=== PATIENT | male | born 1990 | race African-American/Black ===

== ENCOUNTER 2019-05-09 10:00 | Emergency (ER) | payer MEDICAID, SELFPAY ==
[2019-05-09 10:54] VITALS: BP 156/88; PULSE 65; RESP 16; TEMP 36.8; O2SAT 100
--- NOTE | 2019-05-09 11:36 | ED.GENADULT ---
HPI - General Adult General Chief complaint: Nausea/Vomiting/Diarrhea Stated complaint: Nausea Source: patient Mode of arrival: ambulatory Limitations: no limitations History of Present Illness HPI narrative: Patient is a 28-year-old male who presents with nausea, generalized body aches, weakness, cough and chills. Patient reports sudden onset of symptoms this a.m. He denies abdominal pain or vomiting and diarrhea. He denies taking [id number] medications for symptom relief prior to arrival. Patient still reports mild nausea. MD complaint: Nausea, weakness, Related Data Allergies Allergy/AdvReac Type Severity Reaction Status Date / Time No Known Allergies Allergy Unverified 11/29/16 17:37 Review of Systems Review of Systems: Narrative: CONSTITUTIONAL: Denies fever, chills, or sweats. EYES: Denies visual changes, redness, or discharge. ENT: Denies rhinorrhea, congestion, sore throat, or otalgia. CARDIOVASCULAR: Denies chest pain, palpitations, or edema. RESPIRATORY: Reports cough, denies dyspnea. GASTROINTESTINAL: Denies abdominal pain, vomiting, or diarrhea. Reports nausea. GENITOURINARY: Denies dysuria or hematuria. SKIN: Denies rash or itching. MUSCULOSKELETAL: Denies back pain, joint pain, or myalgia. NEUROLOGIC: Denies headache, numbness, dizziness, or weakness. PSYCHIATRIC: Denies anxiety or depression. [facility] Past Medical History Medical History (Updated 05/09/19 @ 11:42 by MYAH Mcdaniels) Renal disease Family History Family History (Updated 05/09/19 @ 11:39 by MYAH Mcdaniels) Grandparent Diabetes mellitus Social History Social History (Updated 05/09/19 @ 11:40 by MYAH Mcdaniels) Smoking status: Current every day smoker Tobacco type: cigarettes Alcohol intake: current Alcohol use details: Socially Substance use: never Living arrangements: with family Occupation/Education: occupation Gender identity (if verbalized by the patient): Male Exam Narrative: Exam Narrative: GENERAL: Well-appearing, well-nourished, and in no acute distress. HEAD: Normocephalic, atraumatic. EYES: EOMI. No redness or drainage. Conjunctiva are normal. ENT: Mucous membranes pink and moist. Nares clear. No rhinorrhea. TMs normal bilaterally. Throat normal. Uvula midline. NECK: AROM. Supple. No lymphadenopathy. CHEST: No respiratory distress. Clear to auscultation. HEART: Regular rate and rhythm. No murmur appreciated. Normal peripheral pulses. GI: Soft, nontender without rebound, or guarding. No distention. Bowel sounds normal in all quadrants. SKIN: Warm, dry, no rash. NEURO: No focal deficits. Alert and oriented x3. Gait steady. PSYCH: Normal affect. No signs of depression or anxiety. Course Vital Signs Vital signs: Vital Signs Temperature 36.8 C 05/09/19 10:54 Pulse Rate 65 05/09/19 10:54 Respiratory Rate 16 05/09/19 10:54 Blood Pressure 156/88 H 05/09/19 10:54 Pulse Oximetry 100 05/09/19 10:54 Temperature 36.8 C 05/09/19 10:54 Pulse Rate 65 05/09/19 10:54 Respiratory Rate 16 05/09/19 10:54 Blood Pressure 156/88 H 05/09/19 10:54 Pulse Oximetry 100 05/09/19 10:54 Reviewed. Patient has been instructed to follow-up with his PCP regarding his blood pressure. Medical Decision Making MDM Narrative Medical decision making narrative: Patient most likely has viral illness. Discussed with patient symptomatic treatment. Patient agrees with plan of care. Patient is stable for discharge to home with outpatient follow-up as needed. Differential Diagnosis Differential Diagnosis: Influenza, viral illness, gastroenteritis Vital Signs Vital Signs: Vital Signs Temperature 36.8 C 05/09/19 10:54 Pulse Rate 65 05/09/19 10:54 Respiratory Rate 16 05/09/19 10:54 Blood Pressure 156/88 H 05/09/19 10:54 Pulse Oximetry 100 05/09/19 10:54 Temperature 36.8 C 05/09/19 10:54 Pulse Rate 65 05/09/19 10:54 Respiratory Rate
== END 2019-05-09 11:48 | disposition home or self-care (01) ==
PROVIDERS: Emergency Provider Nurse Practitioner
DX: R11.0 Nausea (principal); F17.210 Nicotine dependence, cigarettes, uncomplicated
CPT/HCPCS: 99213; G0463

== ENCOUNTER 2019-06-27 09:42 | Emergency (ER) | payer MEDICAID, SELFPAY ==
[2019-06-27 09:58] VITALS: BP 157/80; PULSE 79; RESP 16; TEMP 37.2; O2SAT 98
--- NOTE | 2019-06-27 10:47 | ED.GENADULT ---
HPI - General Adult General Chief complaint: Unspecified Stated complaint: right side pain Time Seen by Provider: 06/27/19 10:31 Source: patient and RN notes reviewed Mode of arrival: ambulatory Limitations: no limitations History of Present Illness HPI narrative: Patient presents today with a one-week history of right lower rib pain. Denies any known injury or trauma. Last night, he coughed and felt a pop in this area with increased pain. Denies recent illness of shortness of breath. Pain increases with movement, coughing, or deep breaths. He has tried no interventions at home prior to arrival. MD complaint: Right rib pain Related Data Home Medications Medication Instructions Recorded Confirmed No Home Medications 06/27/19 06/27/19 Allergies Allergy/AdvReac Type Severity Reaction Status Date / Time No Known Allergies Allergy Verified 06/27/19 10:01 Review of Systems Review of Systems: Narrative: CONSTITUTIONAL: Denies body aches, fever, chills, or sweats. EYES: Denies visual changes, redness, or discharge. ENT: Denies rhinorrhea, congestion, sore throat, or otalgia. CARDIOVASCULAR: Denies chest pain, palpitations, or edema. RESPIRATORY: Denies cough or dyspnea. Right rib pain GASTROINTESTINAL: Denies abdominal pain, nausea, vomiting, or diarrhea. GENITOURINARY: Denies dysuria or hematuria. SKIN: Denies rash, itching, or wounds. MUSCULOSKELETAL: Denies back pain, joint pain, or myalgia. NEUROLOGIC: Denies headache, numbness, tingling, or weakness. PSYCH: Denies depression or anxiety. [facility] Past Medical History Medical History (Updated 06/27/19 @ 10:51 by Flower Mullen, MYAH, ) Renal disease Family History Family History (Updated 05/09/19 @ 11:39 by MYAH Mcdaniels) Grandparent Diabetes mellitus Social History Social History (Updated 05/09/19 @ 11:40 by MYAH Mcdaniels) Smoking status: Current every day smoker Tobacco type: cigarettes Alcohol intake: current Substance use: never Gender identity (if verbalized by the patient): Male Comments At time of signature, I have reviewed and agree with nursing past medical, surgical, social and family history unless otherwise noted. Please see nursing chart for further information. There is no relevant family history pertinent to the presenting complaint Exam Narrative: Exam Narrative: GENERAL: Well-appearing, well-nourished, and in no acute distress. HEAD: Normocephalic, atraumatic. EYES: EOMI. No redness or drainage. Conjunctivae normal. ENT: Mucous membranes pink and moist. NECK: Normal AROM. Supple. No lymphadenopathy. CHEST: No respiratory distress. Clear to auscultation. Tenderness to the right anterolateral rib line. No crepitus, edema noted. HEART: Regular rate and rhythm. No murmur appreciated. Normal peripheral pulses. ABDOMEN: Soft, nontender, nondistended, normal active bowel sounds. MUSCULOSKELETAL: No bony tenderness. EXTREMITIES: Normal range of motion. No edema. SKIN: Warm, dry, no rash. Capillary refill normal. Normal skin turgor. NEURO: No focal deficits. Alert and oriented x3. Gait steady. PSYCH: Normal affect. No signs of depression or anxiety. Course Vital Signs Vital signs: Vital Signs Temperature 99.0 F 06/27/19 09:58 Pulse Rate 79 06/27/19 09:58 Respiratory Rate 16 06/27/19 09:58 Blood Pressure 157/80 H 06/27/19 09:58 Pulse Oximetry 98 06/27/19 09:58 Temperature 99.0 F 06/27/19 09:58 Pulse Rate 79 06/27/19 09:58 Respiratory Rate 16 06/27/19 09:58 Blood Pressure 157/80 H 06/27/19 09:58 Pulse Oximetry 98 06/27/19 09:58 Reviewed. Pt has been instructed to follow up with his PCP regarding his elevated blood pressure today. Medical Decision Making Differential Diagnosis Differential Diagnosis: Pleurisy, muscle strain, chest wall pain, rib strain Vital Signs Vital Signs: Vital Signs Temperature 99.0 F 06/27/19 09:58 Pulse Rate 79
== END 2019-06-27 10:54 | disposition home or self-care (01) ==
PROVIDERS: Emergency Provider Nurse Practitioner
DX: S23.41XA Sprain of ribs, initial encounter (principal); X58.XXXA Exposure to other specified factors, initial encounter; F17.210 Nicotine dependence, cigarettes, uncomplicated
CPT/HCPCS: 99212; G0463

== ENCOUNTER 2019-10-08 08:18 | Emergency (ER) | payer OTHER, SELFPAY ==
--- NOTE | ~2019-10-08 | XR_ITS ---
XR knee LT min 4V DATE: 10/08/2019 08:39 INDICATION: Twisting injury of left knee. Medial and lateral pain. TECHNIQUE: Crosstable lateral, AP and bilateral oblique views COMPARISON: None FINDINGS: There is mild to moderate suprapatellar knee joint effusion. No fracture or dislocation, periosteal reaction or bone destruction, radiopaque intra-articular loose body or chondrocalcinosis is evident. The joint spaces are preserved. IMPRESSION: Mild/moderate suprapatellar knee joint effusion Reviewed, dictated and finalized at location A.
[2019-10-08 08:28] VITALS: BP 148/83; PULSE 65; RESP 65; TEMP 36.6; O2SAT 100
--- NOTE | 2019-10-08 08:34 | ED.GENADULT ---
HPI - General Adult General Chief complaint: Extremity Injury, Lower Stated complaint: left knee pain Time Seen by Provider: 10/08/19 08:28 Source: patient and RN notes reviewed Mode of arrival: ambulatory Limitations: no limitations History of Present Illness HPI narrative: 27-year-old -[place] male presents with complains of diffused left knee pain for the past 7 days. Epson salt soaks, icy-hot, and Ibuprofen (last on the night of 10/07/19) with no relief. No known injury. Nathan says he was walking and he knee gave out and he fell to the ground. Denies hitting head or loss of consciousness. No radiation of pain. No numbness or tingling, or bleeding. Swelling. No loss of mobility. Exacerbating factor consist of bearing weight. No fever or chills. Remains active. The patient reports he have not been diagnosed with COVID-19. The patient reports he is not waiting for the results of a COVID-19 lab test. The patient reports he do not have fever, chills, weakness, fatigue, or myalgia. The patient reports he do not have a new or worsening cough or shortness of breath. Denies chest pain. The patient reports he do not have any rhinorrhea, congestion, sore throat, nausea, vomiting, abdominal pain, and diarrhea. Tolerating po intake well. Denies recent traveling. Denies concerns for COVID-19 or exposures been home with limited outdoor exposure except for essential household needs, work, and return home. At this time, patient is not suspected of having COVID-19. Some parts of this dictation were generated by voice recognition software and may contain typographical and/or grammatical inaccuracies. Related Data Allergies Allergy/AdvReac Type Severity Reaction Status Date / Time No Known Allergies Allergy Verified 06/27/19 10:01 Review of Systems Review of Systems: Narrative: CONSTITUTIONAL: Denies fever, chills, sweats. EYES: Denies visual changes, redness, discharge. ENT: Denies rhinorrhea, congestion, sore throat, otalgia. CARDIOVASCULAR: Denies chest pain, palpitations, edema. RESPIRATORY: Denies dyspnea, wheezing, cough. GASTROINTESTINAL: Denies abdominal pain, nausea, vomiting, diarrhea. GENITOURINARY: Denies dysuria, hematuria, abnormal discharge SKIN: Denies rash or itching. MUSCULOSKELETAL: Denies acute back pain or myalgia. Complains of diffused Left knee pain and top of knee swelling. NEUROLOGIC: Denies numbness, or focal weakness. PSYCHIATRIC: Denies anxiety or depression. All other systems reviewed & are unremarkable except as noted in HPI and below. [facility] Past Medical History Medical History (Updated 10/09/19 @ 00:00 by Hannah Diaz) Renal disease Surgical History Surgical History (Updated 10/08/19 @ 08:49 by MYAH Leiva) No significant past surgical history Family History Family History (Updated 10/08/19 @ 08:49 by MYAH Leiva) Grandparent Diabetes mellitus Father Unknown family medical history Mother Hypertension Social History Social History (Updated 10/08/19 @ 08:50 by MYAH Leiva) Smoking packs per day: 0.5 Smoking cigarettes per day: 10.0 Years smoked: 15 Smoking pack-years: 7.50 Smoking status: Current every day smoker Tobacco type: cigarettes Alcohol intake: current Substance use: never Living arrangements: with family Occupation/Education: occupation Gender identity (if verbalized by the patient): Male Sexual Orientation (if Verbalized by the Patient): Straight or Heterosexual Comments At time of signature, agree with nurse past medical, surgical, social, and family history. There is no relevant family history pertinent to the presenting complaint. Exam Narrative: Exam Narrative: GENERAL: This is a well-nourished, well-developed patient, in no apparent distress. Talks in full sentences and ambulates with LT antalgic gait without dyspnea. HEAD: normocephalic, atraumatic. EYES: PERRL. Sclera clear/white. Vi
== END 2019-10-08 09:00 | disposition home or self-care (01) ==
PROVIDERS: Emergency Provider Nurse Practitioner Family
DX: S83.92XA Sprain of unspecified site of left knee, initial encounter (principal); X58.XXXA Exposure to other specified factors, initial encounter; M25.462 Effusion, left knee; F17.210 Nicotine dependence, cigarettes, uncomplicated
CPT/HCPCS: 73564; 99213; G0463

== ENCOUNTER 2020-12-03 13:23 | Emergency (ER) | payer OTHER, SELFPAY ==
[2020-12-03 13:31] VITALS: BP 133/85; PULSE 76; RESP 20; TEMP 36.8; O2SAT 100
--- NOTE | 2020-12-03 15:22 | ED.URI ---
HPI - URI/Sore Throat General Chief Complaint: Upper Respiratory Infection Stated Complaint: Cough,Congestion Time Seen by Provider: 12/03/20 15:20 Source: patient, RN notes reviewed and old records reviewed Mode of arrival: ambulatory Limitations: no limitations History of Present Illness HPI Narrative: 30-year-old male who presents to [facility] with complaints of cough and congestion and runny nose for the past 3 days with no fevers or any shortness of breath.Patient states that he has been blowing alot of nasal clear to light yellow drainage. He reports that cough is frequent and seems deep and at times is productive, respirations even and nonlabored with no tachypnea noted. MD elicited complaint: cough and rhinorrhea Related Data Allergies Allergy/AdvReac Type Severity Reaction Status Date / Time No Known Allergies Allergy Verified 06/27/19 10:01 Review of Systems Review of Systems: CONSTITUTIONAL: Denies fever, chills, or sweats. EYES: Denies visual changes, redness, or discharge. ENT: Positive for rhinorrhea, congestion,no sore throat, or otalgia. CARDIOVASCULAR: Denies chest pain, palpitations, or edema. RESPIRATORY: Acute cough denies dyspnea. GASTROINTESTINAL: Denies abdominal pain, nausea, vomiting, or diarrhea. GENITOURINARY: Denies dysuria or hematuria. SKIN: Denies rash or itching. MUSCULOSKELETAL: Denies back pain, joint pain, or myalgia. NEUROLOGIC: Denies headache, numbness, or weakness. PSYCHIATRIC: Denies anxiety or depression. [facility] Past Medical History Medical History (Updated 12/05/20 @ 15:36 by Kailee Torres NP) Renal disease minimal change disease Surgical History Surgical History No significant past surgical history Family History Family History Grandparent Diabetes mellitus Father Unknown family medical history Mother Hypertension Social History Social History Smoking packs per day: 0.5 Smoking cigarettes per day: 10.0 Years smoked: 15 Smoking pack-years: 7.50 Smoking status: Current every day smoker Tobacco type: cigarettes Alcohol intake: current Alcohol use details: Socially Substance use: never Gender identity (if verbalized by the patient): Male Sexual Orientation (if Verbalized by the Patient): Straight or Heterosexual Comments at time of signature agree with nursing documentation of past medica,l surgical, social, and family history. There is no relevant family history pertinent to presenting complaint Exam Narrative: GENERAL: Well-appearing, well-nourished, and in no acute distress. HEAD: Normocephalic, atraumatic. EYES: PERRLA and EOMI. ENT: Nares acutely red with clear nasal drainage and congestion no epistaxis, TM's normal with good light reflex, throat mild redness with no lesions or exudates, no tonsil enlargement, post nasal drainage present Mucous membranes moist. NECK: Supple.no lymphadenopathy CHEST: Clear to auscultation. No respiratory distress. acute cough SAO2 100% on room air HEART: Regular rate and rhythm. No murmur heard. Normal peripheral pulses. ABDOMEN: Soft, nontender, nondistended, normal active bowel sounds. EXTREMITIES: Normal range of motion. No edema. SKIN: Warm, dry, no rash. NEURO: No focal deficits. Alert and oriented x3. Course Vital Signs Vital signs: Vital Signs Temperature 36.8 C 12/03/20 13:31 Pulse Rate 76 12/03/20 13:31 Respiratory Rate 12/03/20 13:31 Blood Pressure 133/85 12/03/20 13:31 Pulse Oximetry 100 12/03/20 13:31 Temperature 36.8 C 12/03/20 13:31 Pulse Rate 76 12/03/20 13:31 Respiratory Rate 12/03/20 13:31 Blood Pressure 133/85 12/03/20 13:31 Pulse Oximetry 100 12/03/20 13:31 MDM - URI/Sore Throat Differential Diagnosis Differential diagnosis: Likely upper respiratory infection, s
== END 2020-12-03 15:45 | disposition home or self-care (01) ==
PROVIDERS: Emergency Provider Registered Nurse
DX: J01.90 Acute sinusitis, unspecified (principal); B96.89 Other specified bacterial agents as the cause of diseases classified elsewhere; F17.210 Nicotine dependence, cigarettes, uncomplicated
CPT/HCPCS: 99213; G0463